=== PATIENT | female | born 1950 | race Caucasian/White ===

== ENCOUNTER 2016-07-20 13:13 | Inpatient (IN) | payer BC ==
--- NOTE | ~2016-07-20 | HP ---
ADMIT: 07/20/2016 RM/LOC: 530 [facility] MR#: [id number] [address] [facility] [address] [place], [place] [address] ARABELLA RESENDIZ [address] [place] [address] Pre-OP History and Physical SEX: F AGE: 66 : 1950 DATE OF SERVICE: 07/20/2016 CHIEF COMPLAINT: Free intraabdominal air, probable perforated diverticulitis. HISTORY OF PRESENT ILLNESS: This is a 66-year-old female patient of Jayna Phelps in [place]. The patient had been admitted to the hospital, I believe, on Saturday, so about three days ago with complaints of right-sided abdominal pain and diverticulitis on CT scan. She has been treated with Rocephin and Flagyl, had been feeling actually little bit better, but then early this morning around 6 o'clock this morning had an abrupt onset of severe abdominal pain, felt much worse, so CT scan was repeated that shows more inflammation in the abdomen, now free air and some free fluid in the belly, so she was transferred down here for definitive surgical care. The patient also received a dose of steroids for her long-standing history of ulcerative colitis. Again, her ulcerative colitis may have been part of the problem with her pain also. She has not had any vomiting. She has felt a little feverish and chilled at times. Her bowels have not been functioning normally. PAST MEDICAL HISTORY: Illnesses include history of ulcerative colitis. MEDICATIONS: Medications are outlined on the chart. ALLERGIES: I BELIEVE ARE NONE. PREVIOUS SURGERIES: She has not had any bowel resection before. She has followed with Dr. Pittman for her ulcer colitis management. So, I believe she has had a colonoscopy in the past. SOCIAL HISTORY: She denies tobacco or alcohol use. FAMILY HISTORY: Noncontributory. REVIEW OF SYSTEMS: Essentially negative with the exception of her ulcerative colitis history, now her current history of pain mostly in the right lower quadrant. Some fevers and chills. PHYSICAL EXAMINATION: GENERAL: She is alert. She is oriented, obviously does not feel well. She has received quite a bit of pain medicine. VITAL SIGNS: Stable. HEENT: Normal. LUNGS: Clear. HEART: Regular. ABDOMEN: Distended. She is tender with positive guarding and rebound. Tender mostly in the right lower quadrant with significant guarding there. EXTREMITIES: Warm and pink without edema. LABORATORY DATA: Her white blood cell count is elevated. Her electrolytes are all normal. ADMIT: 07/20/2016 RM/LOC: 530 [facility] MR#: [id number] [address] [facility] [address] [place], [place] [address] ARABELLA RESENDIZ [address] [place] [address] Pre-OP History and Physical SEX: F AGE: 66 : 1950 ASSESSMENT: Perforated diverticulitis with increasing free air, free fluid, and inflammation particularly in the pelvis and right lower quadrant area. Probable perforated diverticulitis. PLAN: I think given that she has failed IV antibiotics and had worsening imaging on her CT scan, I think she is going to require laparotomy, sigmoid resection, and probable end colostomy. I have gone through the risks and benefits of this procedure in depth with the patient as well as her daughter is present with her, they understand all this and agreed to proceed. Samm Ann MD/ yoselyn JOB #: [id number] CC: Samm Ann, Attending Physician UNKNOWN, Family Physician ALONZO Parra
--- NOTE | ~2016-07-20 | WND ---
ADMIT: 07/20/2016 RM/LOC: 530 [facility] MR#: [id number] [address] [facility] [address] [place] [id number] ARABELLA RESENDIZ [address] [place] [address] Wound Care Clinic SEX: F AGE: 66 : 1950 DATE OF VISIT: 07/24/2016 TIME IN: 1200 hours. TIME OUT: 1240 hours. The entire visit was spent in ostomy education. REASON FOR VISIT: End colostomy education and cares. A request for wound care from Dr. Ann. HISTORY OF PRESENT ILLNESS: This is a 66-year-old female, who had been experiencing abdominal pain on and off for the past month. She was actually hospitalized in [place] and placed on IV antibiotics. This was 1 week ago. However, on 07/20/2016, she felt abrupt onset of severe abdominal pain and a CT scan was repeated that showed more inflammation in her abdomen along with free air and free fluid in the belly, so she was transferred to [facility] for definitive surgical care. She has a history of long- standing ulcerative colitis and she had received a dose of steroids for her ulcerative colitis. She was taken to surgery on 07/20/[address] Ann, who performed an exploratory laparotomy with segmental sigmoid resection and end colostomy. She was seen yesterday by Sarah López, certified Wound Care nurse, and ostomy education was started. Her pouching system was changed yesterday. PAST MEDICAL HISTORY: Significant for ulcerative colitis. Dr. Pittman follows her for ulcerative colitis management. PAST SURGICAL HISTORY: Colonoscopy. ALLERGIES: No known medication allergies. CURRENT MEDICATIONS: Per the MAR. Please see the MAR for further details. 1. Flonase. 2. Lovenox. 3. Pepcid. 4. Unasyn. PRN medications: 1. Ambien. 2. Benadryl. 3. Compazine. 4. Hydrocodone/acetaminophen. 5. Maalox. 6. Surfak. 7. Tylenol. 8. Tylenol suppositories. 9. Zyrtec. 10.Benadryl. 11.Morphine PAINTER RAILROAD CAR. ADMIT: 07/20/2016 RM/LOC: 530 [facility] MR#: [id number] [address] [address] ARABELLA RESENDIZ [address] [address], [place] [address] Wound Care Clinic SEX: F AGE: 66 : 1950 12.Narcan. 13.Phenergan. 14.Zofran. FAMILY HISTORY: Past records indicate cancer and hypertension. SOCIAL HISTORY: She has a master's. No history of smoking, alcohol, or chemical use. She usually is on a regular diet. 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 REVIEW OF SYSTEMS: She is examined in her hospital room where she is in the recliner. She is awake, alert, and oriented x3. She denies any recent fever or chills. No nausea or vomiting. She is able to eat breakfast without any discomfort. She does have some flatus. She denies any abdominal pain stating she is pretty comfortable. The only uncomfortable feeling she has is when she is passing gas. PHYSICAL EXAMINATION: Focused exam is to her abdomen. Her abdomen is slightly distended. Her Mikye-Erickson was recently removed from her right lower quadrant. It still has a small amount of red wound base to it. Scant amount of serous drainage noted. No surrounding erythema or induration. Her midline incision is intact with no drainage. Lancaster evident without erythema. To her left lower quadrant is her stoma that is red, moist, and elevated above the surface. It measures 45 mm and is bud-shaped. There is liquidy serous effluent in the pouching system. The wafer was not removed today since it was just changed yesterday. ASSESSMENT: End colostomy, status post laparotomy and sigmoid resection secondary to perforated diverticulitis. TREATMENT PLAN: The entire 40 minutes was spent in ostomy education. I was able to demonstrate to her how to prepare a wafer and a pouch. A practice border was given to her to practice. Reviewed the ostomy packet and answered questions. She did sign up for [employer] and this was faxed to the [employer]. She also asked that her supplies be sent to [employer] here in [place] to be emailed to her home. Her daughter will stop at [employer] and take in the insurance information. ADMIT: 07/20/2016 RM/LOC: 530 [facility] MR#: [id number] [address] [place] [id number] ARABELLA RESENDIZ [id number] [place] [address] Wound Care Clinic SEX: F AGE: 66 : 1950 She also consented to the benefits of having home health care help her get started since she probably will be going home tomorrow. She does report she has a daughter who is a PA, who works in the [employer] and this daughter will be staying with her for the next week or so to help her in her cares. She voiced understanding of the education. An E-script was sent to [employer] for her ostomy supplies. A followup appointment is requested in 10-14 days when she returns to see Dr. Ann so that they can be arranged on the same day. Thank you for allowing us to participate in the care of this lady. Justina Alvarez APRN/ yoselyn JOB #: [id number] CC: Samm Ann, Attending Physician Lianne Phelps, Family Physician
[2016-07-26] MEDS ORDERED: FLOVENT 44MCG10.6 GM NS (06:54)
[2016-07-26] MEDS ORDERED: DELZICOL400 M1 PO (06:54)
[2016-07-26] MEDS ORDERED: PRESERVISION A1 EAC1 PO (06:55)
[2016-07-26] MEDS ORDERED: CALCIUM 600 +1 EAC3 PO (06:55)
[2016-07-26] MEDS ORDERED: ZYRTEC DPS10 MG PO (06:56)
[2016-07-26] MEDS ORDERED: ZOFRAN4 MG PO (06:57)
[2016-07-26] MEDS ORDERED: AMOXICILLIN875 MG PO (06:57)
[2016-07-26] MEDS ORDERED: THERAGRAN-M PR1 EACH PO (06:58)
[2016-07-26] MEDS ORDERED: NORCO 5-325 TA1 EACH PO (06:58)
--- NOTE | 2016-08-02 09:04 | OR ---
ADMIT: 07/20/2016 RM/LOC: 530 [facility] MR#: [id number] [address] [facility] [address] [place], [place] [address] QUITA RESENDIZLEATHA Sandra [address] [place] [address] Operative/Delivery Room Report SEX: F AGE: 66 : 1950 SURGERY DATE: 07/20/2016 SURGEON: Samm Ann MD PREOPERATIVE DIAGNOSIS: Free intraabdominal air, probable perforated diverticulitis. POSTOPERATIVE DIAGNOSIS: Perforated diverticulitis with feculent peritonitis. PROCEDURE PERFORMED: Exploratory laparotomy, segmental sigmoid resection, and end colostomy. PLATEN PRESS FEEDER: ALONZO Mclaughlin. ANESTHESIA: General endotracheal. ESTIMATED BLOOD LOSS: Approximately 100 mL. DESCRIPTION OF PROCEDURE: After appropriate informed consent was obtained, the patient was brought to the operating room. General endotracheal anesthesia was induced. The patient's abdomen was prepped and draped in a sterile fashion. A lower midline incision was created. I excised her old scar from a previous abdominal surgery. This was carried deep with cautery down to the fascia. The fascia was opened with cautery and the peritoneum was then opened sharply. With the abdomen opened, obviously, there was a lot of feculent, purulent peritonitis with intraabdominal sepsis. The abdomen was first irrigated and suctioned out. I was able to identify a loop of the sigmoid colon. It was actually stuck in her right lower quadrant which makes sense why she was having such pain in the right lower quadrant of her abdomen, but she did have an obvious perforated diverticulum with just free spillage of stool from the colon into the abdomen there and beginnings of an abscess cavity around the colon. I was able to bluntly free this up and bring it up. I was able to identify an area distal to the perforation to divide across the rectosigmoid junction. So, cautery was used to make a small window posterior to the rectum and through the mesentery. I was then able to transect across the rectosigmoid junction with a RAMANDEEP-75 stapler. I then clamped and divided the mesentery to the section of the bowel that was perforated. The vessels were ligated with 0 Polysorb ties, and then I divided proximal to the perforation with an additional load of the RAMANDEEP-75 stapler. So, the specimen was handed off. I then controlled a little bit of bleeding from the mesentery with a [id number] 0 Vicryl stick tie. Once I was satisfied with hemostasis, I then copiously irrigated out the abdomen with several liters of saline, particularly down to the pelvis where there was keena stool and pus. This was irrigated and suctioned out. Once I was satisfied with hemostasis and satisfied that I had all the purulent fluid suctioned out, I placed a 19- Italian round Minesh drain down into the pelvis. I then made preparations to bring up an end colostomy. An incision was made in the left lower quadrant. This was carried deep with cautery. The anterior layer of the rectus fascia was opened up and the peritoneum was also opened after the muscle fibers were ADMIT: 07/20/2016 RM/LOC: 530 [facility] MR#: [id number] [address] [address] ARABELLA RESENDIZ [address] [place], [place] [id number] Operative/Delivery Room Report SEX: F AGE: 66 : 1950 split. The bowel had been freed up, so there was enough mobility and length to the colon to be brought up and out through the abdominal wall and it came up easily through the abdominal wall at the ostomy site. I then placed a couple of pieces of Seprafilm in the abdomen; one down in the pelvis over the rectal stump. It should also be noted I had marked this with a couple of 2-0 Prolene sutures which the tails were left long, marked that rectal stump. I then also wrapped some Seprafilm around the ostomy. I then placed the last piece of that Seprafilm underneath the midline wound. So, with this accomplished, the midline fascia was then closed with 2 looped #1 PDS sutures starting at either end and tied in the middle. Subcutaneous tissues were copiously irrigated out and the skin closed with skin sylvia. The ostomy was then matured by cutting away the staple line and maturing the cut end of the bowel to the dermal layer of the skin. This was done with 3-0 Vicryl sutures. Ostomy appliance was applied. The drain was sewn in place, placed to bulb suction. A sterile dressing was placed to the midline wound. Wiliam Fan assisted in this entire procedure. His help was necessary for retraction during this difficult dissection. Samm Ann MD/ yoselyn JOB #: [id number] CC: Samm Ann, Attending Physician UNKNOWN, Family Physician ALONZO Parra
--- NOTE | 2016-09-05 10:44 | DS ---
ADMIT: 07/20/2016 RM/LOC: 530 [facility] MR#: [id number] [address] [facility] [address] [place], [place] [address] ARABELLA RESENDIZ [address] [place] [address] Discharge Summary SEX: F AGE: 66 : 1950 ADMISSION DATE: 07/20/2016 DISCHARGE DATE: 07/25/2016 ADMITTING DIAGNOSIS: Free intraabdominal air, probable perforated diverticulitis. DISMISSAL DIAGNOSES: 1. Diverticular disease with perforated diverticulum with acute and chronic serositis of the sigmoid colon. 2. Ulcerative colitis. PROCEDURES: Exploratory laparotomy, segmental sigmoid resection, and end colostomy. HOSPITAL COURSE: The patient was an inpatient admit with routine med/surg orders and tele orders. She was given a morphine ENGINEER EXHAUSTER for pain control and was started on IV antibiotics. After surgery, the patient transferred to the floor without any complications. Initially after surgery, the patient was doing well. Her pain was controlled. Maurice was removed postop day #2. She was tolerating an advanced diet and so she was weaned off her morphine ENGINEER EXHAUSTER and was tolerating oral pain medications. Ostomy was producing good stool. On postop day #4, a GLORIA that was placed intraoperatively was removed. The patient continued to recover well. Her vitals normalized, and she was able to discharge to home on 07/25/2016. DISCHARGE INSTRUCTIONS: 1. Follow up with Dr. Ann in 7-10 days. 2. Home Health Care for ostomy management. 3. Ensure Plus or Boost Plus between meals. 4. Follow up with Wound Care August 07. DISCHARGE MEDICATION LIST: 1. Fluticasone 50 mcg 1 spray in each naris daily. 2. Delzicol 800 mg t.i.d. 3. Calcium D supplement twice daily. 4. PreserVision at bedtime. 5. Theragran daily. 6. Cetirizine 10 mg daily p.r.n. 7. Augmentin 875 mg b.i.d. for 7 days. 8. Zofran 4 mg q.6h p.r.n. 9. Bellevue 5/325 one to two tabs q.4-6 hours p.r.n. ALONZO Mclaughlin / Samm Ann MD / candace JOB #: [id number] CC: Samm Ann MD, Attending Physician ADMIT: 07/20/2016 RM/LOC: 530 [facility] MR#: [id number] [address] [address] ARABELLA RESENDIZ [id number] [place] [address] Discharge Summary SEX: F AGE: 66 : 1950 ALONZO Parra, Family Physician
== END 2016-07-25 14:22 | disposition home health service (06) | DRG 330 ==
LOC: 5MS 13:13
PROVIDERS: ADMIT Surgery
PROC: 0D1N074 Bypass Sigmoid Colon to Cutaneous with Autologous Tissue Substitute, Open Approach (ICD-10-PCS; principal; 2016-07-20)
PROC: 0DBN0ZZ Excision of Sigmoid Colon, Open Approach (ICD-10-PCS; principal; 2016-07-20)
DX: K57.20 Diverticulitis of large intestine with perforation and abscess without bleeding (principal); K51.90 Ulcerative colitis, unspecified, without complications

== ENCOUNTER → 2016-11-20 | Outpatient (CLI) | payer BC, MEDICARE ==
[~2016-11-20] MED LIST: AMOXICILLIN875 MG PO; CALCIUM 600 +1 EAC3 PO; DELZICOL400 M1 PO; FLOVENT 44MCG10.6 GM NS; NORCO 5-325 TA1 EACH PO; PRESERVISION A1 EAC1 PO; THERAGRAN-M PR1 EACH PO; ZOFRAN4 MG PO; ZYRTEC DPS10 MG PO
== END | disposition home or self-care (01) ==
LOC: RAD.S 14:15
DX: M79.604 Pain in right leg (principal); I80.291 Phlebitis and thrombophlebitis of other deep vessels of right lower extremity